=== PATIENT | female | born 1990 | race Caucasian/White ===

== ENCOUNTER 2019-12-21 18:17 | Emergency (ER) | payer MEDICAID, OTHER ==
[2019-12-21 18:42] VITALS: BP 103/67; PULSE 62
[2019-12-21] MEDS ORDERED: Lidocaine 2% Viscous Solution 15 ML Cup PO ONE (18:45)
[2019-12-21] MEDS ORDERED: Benzocaine 20% Topical Spray UD MUCMEM ONE (18:45)
--- NOTE | 2019-12-21 18:48 | EDM.PDOC ---
ED HPI GENERAL MEDICAL PROBLEM - General Chief Complaint: ENT Problem Stated Complaint: TOOOTH PAIN Time Seen by Provider: 12/21/19 18:42 Source of Information: Reports: Patient History Limitations: Reports: No Limitations - History of Present Illness INITIAL COMMENTS - FREE TEXT/NARRATIVE: HISTORY AND PHYSICAL: History of present illness: Patient is a 29-year-old female who presents to the emergency room with complaints of right posterior dental pain. She states this is been ongoing for the last 2 days and has not improved. She has noted a hole in her tooth which she believes is causing the problem. Currently does not have an appointment with a local dentist but does plan on calling and having an appointment scheduled soon. She does smoke marijuana twice daily and states this does not alleviate her discomfort. Patient denies any fever, chills, headache, change in vision, syncope or near syncope. Denies any chest pain, back pain, shortness of breath or cough. Denies any GI symptoms. Patient has been eating and drinking appropriately. Review of systems: As per history of present illness and below otherwise all systems reviewed and negative. Past medical history: As per history of present illness and as reviewed below otherwise noncontributory. Surgical history: As per history of present illness and as reviewed below otherwise noncontributory. Social history: See social history for further information Family history: As per history of present illness and as reviewed below otherwise noncontributory. Physical exam: General: Well developed and well-nourished 29-year-old female. Alert and oriented. She does have a flat affect. Nontoxic in appearance and in no acute distress. HEENT: Atraumatic, normocephalic, pupils equal and reactive bilaterally, negative for conjunctival pallor or scleral icterus, mucous membranes moist, she does have multiple dental caries and some mild erythema along the right posterior molar where she is complaining of pain, TMs normal bilaterally, throat clear, neck supple, nontender, trachea midline. No drooling or trismus noted. No meningeal signs. No hot potato voice noted. Lungs: Clear to auscultation, breath sounds equal bilaterally. Heart: S1S2, regular rate and rhythm without overt murmur Abdomen: Soft, nondistended, nontender. Negative for masses or hepatosplenomegaly. Negative for costovertebral tenderness. Skin: Intact, warm, dry. No lesions or rashes noted. Extremities: Atraumatic, moves all extremities per self without difficulty or deficits. Neurovascular unremarkable. Neuro: Awake, alert, oriented. Cranial nerves II through XII unremarkable. Cerebellum unremarkable. Motor and sensory unremarkable throughout. Exam nonfocal. Notes: We discussed the importance of following up with a dentist. Medication and supportive care measures were reviewed and discussed. Voices understanding and is agreeable to plan of care. Denies any further questions or concerns at this time. Diagnostics: None Therapeutics: Dental Balls Prescription: Penk VK Diclofenac Impression: Dental Caries Dentalgia r/o abscess Plan: 1. Please take the antibiotic as prescribed. 2. Tylenol and/or ibuprofen as needed for pain management. "Tooth Balls" have been given to you; apply along the gumline every 2-3 hours as needed. Do not swallow these; external use only. 3. Follow-up with a dentist for definitive care. Return to the ED as needed and as discussed. Definitive disposition and diagnosis as appropriate pending reevaluation and review of above. right face, dental Pain Score (Numeric/FACES): 9 - Related Data Allergies Allergy/AdvReac Type Severity Reaction Status Date / Time No Known Allergies Allergy Verified 12/21/19 18:42 Home Meds: Home Meds Diclofenac Sodium 50 mg PO TID PRN #30 tablet. 12/21/19 [Rx] Penicillin V Potassium [Veetids] 250 mg PO TID 10 Days #30 tab 12/21/19 [Rx] Past Medical History - Past Health History Medical/Surgical History: Denies Medical/Surgical History HEENT History: Reports: Other (See Below) - Infectious Disease History Infectious Disease History: Reports: Chicken Pox - Past Surgical History HEENT Surgical History: Reports: None Social & Family History - Family History Family Medical History: Noncontributory - Tobacco Use Smoking Status *Q: Never Smoker - Recreational Drug Use Recreational Drug Use: Yes Drug Use in Last 12 Months: Yes Recreational Drug Type: Reports: Marijuana/Hashish Recreational Drug Use Frequency: Daily ED ROS ENT - Review of Systems Review Of Systems: Comprehensive ROS is negative, except as noted in HPI. ED EXAM, ENT - Physical Exam Exam: See Below (See dictation) Course - Vital Signs Last Recorded V/S: Last Vital Signs Temp 97.7 F 12/21/19 18:39 Pulse 62 12/21/19 18:39 Resp 18 02/19/20 18:39 BP 103/67 12/21/19 18:39 Pulse Ox 99 12/21/19 18:39 - Orders/Labs/Meds Meds: Medications Discontinued Medications Generic Name Dose Route Start Last Admin Trade Name Jaquelin PRN Reason Stop Dose Admin Benzocaine 2 each 12/21/19 18:45 Hurricaine One 20% MUCMEM 12/21/19 18:46 ONETIME ONE Lidocaine HCl 15 ml 12/21/19 18:45 Xylocaine 2% Viscous PO 12/21/19 18:46 ONETIME ONE Departure - Departure Time of Disposition: 18:47 Disposition: Home, Self-Care 01 Clinical Impression: Dental caries, Dentalgia - Discharge Information Prescriptions: Diclofenac Sodium 50 mg PO TID PRN #30 tablet.dr MORLEY Reason: Pain Penicillin V Potassium [Veetids] 250 mg PO TID 10 Days #30 tab Referrals: PCP,None [Primary Care Provider] - Forms: ED Department Discharge Additional Instructions: The following information is given to patients seen in the emergency department who are being discharged to home. This information is to outline your options for follow-up care. We provide all patients seen in our emergency department with a follow-up referral. The need for follow-up, as well as the timing and circumstances, are variable depending upon the specifics of your emergency department visit. If you don't have a primary care physician on staff, we will provide you with a referral. We always advise you to contact your personal physician following an emergency department visit to inform them of the circumstance of the visit and for follow-up with them and/or the need for any referrals to a consulting specialist. The emergency department will also refer you to a specialist when appropriate. This referral assures that you have the opportunity for follow-up care with a specialist. All of these measure are taken in an effort to provide you with optimal care, which includes your follow-up. Under all circumstances we always encourage you to contact your private physician who remains a resource for coordinating your care. When calling for follow-up care, please make the office aware that this follow-up is from your recent emergency room visit. If for any reason you are refused follow-up, please contact the Emergency Department at and asked to speak to the emergency department charge nurse. [facility] [address] [place] [address] [facility] [address] [place] [address] 1. Please take the antibiotic as prescribed. 2. Tylenol and/or ibuprofen as needed for pain management. "Tooth Balls" have been given to you; apply along the gumline every 2-3 hours as needed. Do not swallow these; external use only. 3. Follow-up with a dentist for definitive care. Return to the ED as needed and as discussed. Sepsis Event Note - Evaluation Sepsis Screening Result: No Definite Risk - Focused Exam Vital Signs: Vital Signs Temp Pulse Resp BP Pulse Ox 12/21/19 18:39 97.7 F 62 18 103/67 99 Date Exam was Performed: 12/21/19 Time Exam was Performed: 18:49
== END 2019-12-21 19:06 | disposition home or self-care (01) ==
LOC: MW.ED 18:17
DX: K02.9 Dental caries, unspecified (principal)
CPT/HCPCS: 99282; A9270; 99283

== ENCOUNTER 2019-12-22 01:17 | Emergency (ER) | payer MEDICAID ==
[2019-12-22] MEDS ORDERED: Bupivacaine 0.5% 10 ML SDV ONE (01:26)
[2019-12-22 01:29] VITALS: BP 121/62; PULSE 62
[2019-12-22] MEDS ORDERED: Lidocaine/EPINEPHrine/Tetracaine Soln 1 ML TOP ONE (01:30)
[2019-12-22] MEDS ORDERED: Bupivacaine 0.5% 10 ML SDV INJECT ONE (01:30)
[2019-12-22] MEDS ORDERED: Lidocaine/EPINEPHrine/Tetracaine Soln 1 ML ONE (01:30)
--- NOTE | 2019-12-22 01:37 | EDM.PDOC ---
ED HPI GENERAL MEDICAL PROBLEM - General Chief Complaint: General Stated Complaint: TOOTH PAIN Time Seen by Provider: 12/22/19 01:25 Source of Information: Reports: Patient - History of Present Illness INITIAL COMMENTS - FREE TEXT/NARRATIVE: The patient returns to the ER secondary to dental pain. She was here for the same complaint earlier in the shift and seen by another provider. The patient was given a prescription for penicillin and diclofenac. She took the over-the- counter agents for her dental pain but it is not helping. No facial swelling, no fevers, no other acute complaints. Pain is located in the right mandible. Also has some swelling on the right side of the roof of her mouth. tooth Pain Score (Numeric/FACES): 9 - Related Data Allergies Allergy/AdvReac Type Severity Reaction Status Date / Time No Known Allergies Allergy Verified 12/22/19 01:25 Home Meds: Home Meds Diclofenac Sodium 50 mg PO TID PRN #30 tablet. 12/21/19 [Rx] Penicillin V Potassium [Veetids] 250 mg PO TID 10 Days #30 tab 12/21/19 [Rx] Past Medical History - Past Health History Medical/Surgical History: Denies Medical/Surgical History HEENT History: Reports: Other (See Below) - Infectious Disease History Infectious Disease History: Reports: Chicken Pox - Past Surgical History HEENT Surgical History: Reports: None Social & Family History - Family History Family Medical History: Noncontributory ED ROS GENERAL - Review of Systems Review Of Systems: See Below (Positive for dental pain, negative for facial swelling, negative for headache, all other Positives and pertinent negatives as per HPI. All other pertinent systems were reviewed and are negative) ED EXAM, GENERAL - Physical Exam Exam: See Below Free Text/Narrative:: Constitutional: Tearful, looks very uncomfortable, Non-toxic appearance. HEENT: Normocephalic, Atraumatic, EOMI, no facial swelling, tooth #30 is eroded into the gums, there is some localized swelling with a small dental abscess, no other abnormalities, area of fluctuance and tenderness posterior to tooth #8 on the roof of the mouth. Neck: Normal range of motion, No stridor, trachea midline Respiratory: No respiratory distress, No tachypnea Cardiovascular: Deferred Gastrointestinal: Deferred Genital / Urinary: Deferred Musculoskeletal: All four extremities present and atraumatic Back: FROM Integument: Warm, Dry, Color is ethnicity appropriate, No rash. Neuro: Alert, Awake, No focal deficits noted Psych: Affect, Judgement, mood normal Course - Vital Signs Text/Narrative:: The patient appears to have a very small dental abscess so I talked to the patient in detail about the dental block and local incision and drainage. The dental box is not stocked so the patient was given LET for local anesthetic for 10 minutes, and then I performed a right inferior alveolar dental nerve block using bupivacaine 0.5% with epinephrine a total of 4 mL. The patient also had an area of fluctuance on the roof of her mouth on the right-hand side posterior to tooth #8 so this was anesthetized using bupivacaine 0.5% with epinephrine a total of 2 mL. There was complete analgesia and then I used a #11 blade and made a small incision through the area of greatest fluctuance through both areas of swelling and purulent drainage was obtained. No complications occurred and the patient is stable for discharge. The patient will be given a small prescription of 10 [place] 5 mg tablets. Last Recorded V/S: Last Vital Signs Temp 36.8 C 12/22/19 01:26 Pulse 62 12/22/19 01:26 Resp 16 12/22/19 01:26 BP 121/62 12/22/19 01:26 Pulse Ox 96 12/22/19 01:26 - Orders/Labs/Meds Orders: Active Orders 24 hr Category Date Time Status Bupivacaine 0.5% [Sensorcaine-MPF 0.5%] Med 12/22/19 01:30 Once 10 ml INJECT ONETIME ONE EPINEPHrine/Lidocaine/Tetracai [LET Soln] Med 12/22/19 01:30 Once 1 ml TOP ONETIME ONE Medication Orders Bupivacaine HCl (Sensorcaine-Mpf 0.5%) 10 ml INJECT ONETIME ONE Stop: 12/22/19 01:31 Lidocaine/Tetracaine (Let Soln) 1 ml TOP ONETIME ONE Stop: 12/22/19 01:31 Meds: Medications Generic Name Dose Route Start Last Admin Trade Name Freq PRN Reason Stop Dose Admin Bupivacaine HCl 10 ml 12/22/19 01:30 Sensorcaine-Mpf 0.5% INJECT 12/22/19 01:31 ONETIME ONE Lidocaine/Tetracaine 1 ml 12/22/19 01:30 Let Soln TOP 12/22/19 01:31 ONETIME ONE Discontinued Medications Generic Name Dose Route Start Last Admin Trade Name Jaquelin PRN Reason Stop Dose Admin Bupivacaine HCl Confirm 12/22/19 01:26 Sensorcaine-Mpf 0.5% Administered 12/22/19 01:27 Dose 10 ml .ROUTE .STK-MED ONE Departure - Departure Time of Disposition: 02:07 Disposition: Home, Self-Care 01 Condition: Good Clinical Impression: Dental abscess - Discharge Information Instructions: Dental Abscess, [id number] Referrals: PCP,None [Primary Care Provider] - Sepsis Event Note - Evaluation Sepsis Screening Result: No Definite Risk - Focused Exam Vital Signs: Vital Signs Temp Pulse Resp BP Pulse Ox 12/22/19 01:26 36.8 C 62 16 121/62 96 Date Exam was Performed: 12/22/19 Time Exam was Performed: 01:31 - My Orders Last 24 Hours: My Active Orders 12/22/19 01:30 Bupivacaine 0.5% [Sensorcaine-MPF 0.5%] 10 ml INJECT ONETIME ONE EPINEPHrine/Lidocaine/Tetracai [LET Soln] 1 ml TOP ONETIME ONE - Assessment/Plan Last 24 Hours: My Active Orders 12/22/19 01:30 Bupivacaine 0.5% [Sensorcaine-MPF 0.5%] 10 ml INJECT ONETIME ONE EPINEPHrine/Lidocaine/Tetracai [LET Soln] 1 ml TOP ONETIME ONE
[2019-12-22] MEDS ORDERED: Benzocaine 20% Topical Spray UD MUCMEM ONE ×2 (01:48→01:53)
== END 2019-12-22 02:30 | disposition home or self-care (01) ==
LOC: MW.ED 01:17
DX: K04.7 Periapical abscess without sinus (principal)
CPT/HCPCS: 41800; 99282; A9270; J3490; 64400; 99283

== ENCOUNTER 2019-12-22 22:12 | Emergency (ER) | payer SELFPAY ==
[2019-12-22 22:23] VITALS: BP 140/34; PULSE 63
[2019-12-22] MEDS ORDERED: Penicillin G Benzathine 1,200,000 Units/2 ML Syringe IM ONE (22:27)
[2019-12-22] MEDS ORDERED: Bupivacaine 0.5% 10 ML SDV ONE (22:28)
[2019-12-22] MEDS ORDERED: Ondansetron 4 MG Tab.DIS PO ONE (22:28)
[2019-12-22] MEDS ORDERED: Bupivacaine 0.5% 10 ML SDV INJECT ONE (22:29)
[2019-12-22] MEDS ORDERED: Ketorolac 60 MG/2 ML SDV IM ONE (22:29)
--- NOTE | 2019-12-22 22:41 | EDM.PDOC ---
ED HPI GENERAL MEDICAL PROBLEM - General Chief Complaint: Gastrointestinal Problem Stated Complaint: VOMITTING, CANNOT EAT, POSSIBLE REACTION Time Seen by Provider: 12/22/19 22:25 Source of Information: Reports: Patient, Significant Other - History of Present Illness INITIAL COMMENTS - FREE TEXT/NARRATIVE: The patient is a 29-year-old female who presents to the ER the third time in the last 24 hours this time for nausea and vomiting. The patient was initially seen for dental pain, return was being by me yesterday evening (see the note ), and after I performed to dental incision and drainages on 2 separate areas, the patient was discharged. She has not been able to keep her antibiotics down nor her Percocets that were prescribed to her because she is having a lot of persistent nausea and vomiting. She also has a new dental abscess along tooth # 8 on the front of her tooth instead of the roof of her mouth. She denies any headache, no visual changes, the dental pain is uncomfortable but nothing severe. The patient's main complaint is persistent nausea and vomiting without abdominal pain. R oral Pain Score (Numeric/FACES): 4 - Related Data Allergies Allergy/AdvReac Type Severity Reaction Status Date / Time No Known Allergies Allergy Verified 12/22/19 22:23 Home Meds: Home Meds Diclofenac Sodium 50 mg PO TID PRN #30 tablet. 12/21/19 [Rx] Penicillin V Potassium [Veetids] 250 mg PO TID 10 Days #30 tab 12/21/19 [Rx] Hydrocodone/Acetaminophen [[place] 5-325 mg Tablet] 1 tab PO Q4H 12/22/19 [ History] Past Medical History - Past Health History Medical/Surgical History: Denies Medical/Surgical History HEENT History: Reports: Other (See Below) Hematologic History: Reports: None - Infectious Disease History Infectious Disease History: Reports: Chicken Pox - Past Surgical History HEENT Surgical History: Reports: None Social & Family History - Family History Family Medical History: Noncontributory - Tobacco Use Smoking Status *Q: Never Smoker - Recreational Drug Use Recreational Drug Use: Yes Recreational Drug Type: Reports: Marijuana/Hashish Recreational Drug Use Frequency: Daily ED ROS GENERAL - Review of Systems Review Of Systems: See Below (Positive for dental pain, positive for nausea vomiting, negative for headache, negative abdominal pain, negative for fevers, all other Positives and pertinent negatives as per HPI. All other pertinent systems were reviewed and are negative) ED EXAM, GI/ABD - Physical Exam Exam: See Below Text/Narrative:: Constitutional: Non-toxic appearance, but she looks very uncomfortable and appears very nauseated. HEENT: Normocephalic, Atraumatic, pupils equal round reactive to light, EOMI, right mandibular dental abscess is improved compared to yesterday, the swelling on the roof of the patient's mouth posterior to tooth #8 is similar to yesterday but not worse, there is a new dental abscess anterior to tooth #8, gums are pink, there is no facial swelling Neck: Normal range of motion, No stridor, trachea midline Respiratory: No respiratory distress, No tachypnea Cardiovascular: Deferred Gastrointestinal: Deferred Genital / Urinary: Deferred Musculoskeletal: All four extremities present and atraumatic Back: FROM Integument: Warm, Dry, Color is ethnicity appropriate, No rash. Neuro: Alert, Awake, x3, cranial nerves grossly intact, normal gait, no focal deficits noted Psych: Affect, Judgement, mood normal Course - Vital Signs Text/Narrative:: Given the entire history and exam, we will give the patient an IM injection of Bicillin LA and then she will stop taking the oral penicillins. The nausea vomiting could be secondary to any combination or anyone of either the patient' s penicillin, opioids, and/or persistent purulent drainage from the patient's mouth. The Bicillin LA will bypass the antibiotics to make sure that she is at least getting the antibiotics on board, and she will be given a dose of Zofran ODT while she is here and a prescription for it. I will also perform an incision and drainage of the new dental abscess in front of tooth #8. The patient has dental follow-up scheduled for Thursday. Even though her dental pain is not too bad at the moment, we will give her an injection of Toradol 60 mg IM. Procedure: Dental abscess incision and drainage -performed by me and I used bupivacaine 0.5% and injected a total of 1.5 mL into the dental abscess anterior to tooth #8. I then used a #11 blade I made a very small incision and drained some purulent drainage. No complications occurred. Last Recorded V/S: Last Vital Signs Temp 37.2 C 12/22/19 22:20 Pulse 63 12/22/19 22:20 Resp 16 12/22/19 22:20 BP 140/34 L 12/22/19 22:20 Pulse Ox 98 12/22/19 22:20 - Orders/Labs/Meds Meds: Medications Discontinued Medications Generic Name Dose Route Start Last Admin Trade Name Jaquelin PRN Reason Stop Dose Admin Bupivacaine HCl 10 ml 12/22/19 22:29 12/22/19 22:38 Sensorcaine-Mpf 0.5% INJECT 12/22/19 22:30 10 ml ONETIME ONE Administration Bupivacaine HCl Confirm 12/22/19 22:28 12/22/19 22:44 Sensorcaine-Mpf 0.5% Administered 12/22/19 22:29 Not Given Dose 10 ml .ROUTE .STK-MED ONE Ketorolac Tromethamine 60 mg 12/22/19 22:29 12/22/19 22:38 Toradol IM 12/22/19 22:30 60 mg ONETIME ONE Administration Ondansetron HCl 4 mg 12/22/19 22:28 12/22/19 22:39 Zofran Odt PO 12/22/19 22:29 4 mg ONETIME ONE Administration Penicillin G Benzathine 1.2 millunits 12/22/19 22:27 12/22/19 22:44 Bicillin L-A IM 12/22/19 22:28 1.2 millunits ONETIME ONE Administration Departure - Departure Time of Disposition: 23:25 Disposition: Home, Self-Care 01 Condition: Good Clinical Impression: Vomiting, Dental abscess - Discharge Information Referrals: PCP,None [Primary Care Provider] - Forms: ED Department Discharge Additional Instructions: Follow-up with your dentist as scheduled Stop the penicillin that was prescribed to you Otherwise, continue all other previous instructions and use the Zofran if you have more nausea and vomiting Sepsis Event Note - Evaluation Sepsis Screening Result: No Definite Risk - Focused Exam Vital Signs: Vital Signs Temp Pulse Resp BP Pulse Ox 12/22/19 22:20 37.2 C 63 16 140/34 L 98 Date Exam was Performed: 12/22/19 Time Exam was Performed: 23:28
== END 2019-12-22 23:46 | disposition home or self-care (01) ==
LOC: MW.ED 22:12
DX: R11.2 Nausea with vomiting, unspecified (principal); K04.7 Periapical abscess without sinus
CPT/HCPCS: 41800; 96372; 99284; A9270; J0561; J1885; J3490; 99283